=== PATIENT | female | born 1970 | race Caucasian/White ===

== ENCOUNTER 2020-08-03 09:51 | Outpatient (CLI) | payer OTHER, SELFPAY ==
--- NOTE | 2020-08-03 10:07 | XRR_ITS ---
PROCEDURE INFORMATION: Exam: XR Right Hand Exam date and time: 08/03/2020 10:11 AM Age: 49 years old Clinical indication: Condition or disease; Arthritis; Type not specified; Hand; Right; Additional info: Arthritis/scoliosis TECHNIQUE: Imaging protocol: XR Right hand. Views: 1 or 2 views. COMPARISON: No relevant prior studies available. FINDINGS: Bones/joints: osseous structures of the hand are without an acute process. Distal radioulnar joint and radiocarpal joints grossly normal. Carpus without fracture. Metacarpals and phalangeal without fracture or dislocation. No erosive changes or periarticular calcifications. Small corticated ossific density adjacent to the ulnar styloid process. 2 mm. mild degenerative changes at the first carpometacarpal joint. Soft tissues: See Bones/joints finding. XR/XR hand RT 2V [id number] IMPRESSION: Mild degenerative changes at the first carpometacarpal joint.
--- NOTE | 2020-08-03 10:07 | XRR_ITS ---
PROCEDURE INFORMATION: Exam: XR Entire Spine, 2 or 3 Views, Scoliosis Exam date and time: 08/03/2020 10:11 AM Age: 49 years old Clinical indication: Condition or disease; Other: Scoliosis; Additional info: Scoliosis arthritis TECHNIQUE: Imaging protocol: XR of the entire spine, 2 or 3 views. Evaluation for scoliosis. COMPARISON: No relevant prior studies available. FINDINGS: Vertebrae: Mild levocurvature of approximately 11 degrees centered at T3. Dextrocurvature of approximately 30 degrees centered at T7-T8. Levocurvature of approximately 30 degrees centered at L1. Dextrocurvature centered at L4 of approximately 30 degrees. Soft tissues: Normal. XR/XR scoliosis survey 2-3V [id number] IMPRESSION: Scoliosis as described above.
== END 2020-08-03 09:52 | disposition home or self-care (01) ==
LOC: RAD 09:56
PROVIDERS: PCP Nurse Practitioner Family; Visit Provider Emergency Medicine
DX: M41.9 Scoliosis, unspecified (principal)
CPT/HCPCS: 72082; 73120